=== PATIENT | female | born 1995 | race Caucasian/White ===

== ENCOUNTER 2024-07-04 14:07 | Outpatient (CLI) | payer BC, SELFPAY ==
[2024-07-04 14:46] LABS: Basophils Absolute Auto 0.1 K/mm3 (0.0-0.1); Basophils Percent Auto 0.8 % (0.2-1.2); Eosinophils Absolute Auto 0.1 K/mm3 (0-0.3); Eosinophils Percent Auto 0.9 % (0-4.4); Hematocrit 39.4 % (37.0-47.0); Hemoglobin 13.3 g/dL (12.0-15.0); Immature Granulocyte Absolute 0.02 K/mm3 (0.00-0.031); Immature Granulocyte Percent A 0.3 % (0-0.5); Immature Platelet Fraction Pct 3.9 % (0.9-11.2); Lymphocytes Absolute Auto 1.95 K/mm3 (0.9-3.2); Lymphocytes Percent Auto 25.5 % (18.3-44.2); Mean Corpuscular HGB Conc 33.8 g/dl (32-36); Mean Corpuscular Hemoglobin 31.1 pg (26-34); Mean Corpuscular Volume 92.1 fl (80-100); Mean Platelet Volume 10.3 fl (7.4-10.4); Monocytes Absolute Auto 0.5 K/mm3 (0.1-0.6); Monocytes Percent Auto 6.9 % (2.6-8.5); Neutrophils Percent Auto 65.6 % (45.5-73.1); Platelet Count Result 246 k/mm3 (150-375); Red Blood Count 4.28 M/mm3 (4.2-5.4); Red Cell Distribution Width 12.7 % (11.5-14.5); White Blood Count 7.7 K/mm3 (4.5-10.0)
[2024-07-04 15:43] LABS: Vitamin D 25 Hydroxy 42.6 ng/mL
--- OUTSIDE RECORDS SUMMARY | 2024-07-04 15:45 | XMS_ITS | Clinical Summary ---
Author Organization [facility] [address] Address [address] [place] [address] Phone Care Team Providers Care Director Biostatistics Name Role Phone Fernandez Stein MD Primary Care Provider [phone] Allergies No known active allergies Medications norgestimate-ethin yl estradiol (ORTHO-CYCLEN) 0.25-35 mg-mcg per tabletIndications: Encounter for general counseling and advice on contraceptive management Take 1 tablet by mouth daily 28 tablet 14 9 Active Active Problems No known active problems Immunizations Immunization Administration Dates Next Due HPV, Quadrivalent 06/03/2015,03/10/2015 Surgical History Surgery Date Site/Laterality Comments TONSILLECTOMY Tonsillectomy Family History Medical History Relation Name Comments Hypertension Mother Hypertension; Other Other No family histo ry of breast cancer; Asthma Sister Asthma; Relation Name Status Comments Mother Other Sister Social History Tobacco Use Types Packs/Day Years Used Date Smoking Tobacco: Never Smokeless Tobacco: Never Alcohol Use Standard Drinks/Week Comments Yes 0 (1 standard drink = 0.6 oz pur e alcohol) Comments No Sex and Gender Information Value Date Recorded Sex Assigned at Not on file 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 Gender Identity Not on file Sexual Orientation Not on file 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[employer], dental hygiene Not on file Not on manpreet e Not on file Obstetrics History Para Term AB IAB SAB Ectopic Multiple Livin g Live Births 0 0 0 0 0 0 0 0 0 0 0 Last Filed Vital Signs Vital Sign Reading Time Taken Comments Blood Pressure 120/88 08/04/2018 2:57 PM CDT Pulse - - Temperature - - Respiratory Rate - - Oxygen Saturation - - Inhaled Oxygen Concentration - - Weight 61.2 kg (135 lb) 08/04/2018 2:57 PM CDT Height 162.6 cm (5' 4 ) 08/04/2018 2:57 PM CDT Body Mass Index 23.17 08/04/2018 2:57 PM CDT Plan of Treatment Not on file Insurance Care Teams Director Biostatistics Relationship Specialty Start Date End Date Fernandez Stein MD [address] [address] PCP - General 07/30/16
--- OUTSIDE RECORDS SUMMARY | 2024-07-04 15:45 | XMS_ITS | Referral Summary ---
Author Organization [facility] [address] Address [address] [place] [address] Phone Care Team Providers Care Camp Coordinator Name Role Phone Fernandez Stein MD Primary Care Provider [phone] Allergies No known active allergies Medications norgestimate-ethin yl estradiol (ORTHO-CYCLEN) 0.25-35 mg-mcg per tabletIndications: Encounter for general counseling and advice on contraceptive management Take 1 tablet by mouth daily 28 tablet 14 9 Active Active Problems No known active problems Immunizations Immunization Administration Dates Next Due HPV, Quadrivalent 06/03/2015,03/10/2015 Social History Tobacco Use Types Packs/Day Years Used Date Smoking Tobacco: Never Smokeless Tobacco: Never Alcohol Use Standard Drinks/Week Comments Yes 0 (1 standard drink = 0.6 oz pur e alcohol) Comments No Sex and Gender Information Value Date Recorded Sex Assigned at Not on file 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
[2024-07-05 07:19] LABS: Prolactin 10.8 ng/mL
== END 2024-07-04 14:08 | disposition home or self-care (01) ==
LOC: ANHLAB 14:10
PROVIDERS: Visit Provider Nurse Practitioner Obstetrics & Gynecology
DX: N92.0 Excessive and frequent menstruation with regular cycle (principal)
CPT/HCPCS: 36415; 82306; 84146; 84443; 85025; 85055